=== PATIENT | female | born 1975 | race Caucasian/White ===

== ENCOUNTER 2018-02-06 11:39 | Emergency (ER) | payer OTHER ==
[~2018-02-06] VITALS: Ht 157.5 cm; Wt 68.0 kg
[2018-02-06] MEDS ORDERED: VENTOLIN HFA18 GM INH (11:49)
== END 2018-02-06 14:16 | disposition home or self-care (01) ==
LOC: ED 11:39
DX: S83.92XA Sprain of unspecified site of left knee, initial encounter (principal); J45.909 Unspecified asthma, uncomplicated; F17.200 Nicotine dependence, unspecified, uncomplicated; Z91.048 Other nonmedicinal substance allergy status; Z79.51 Long term (current) use of inhaled steroids; W19.XXXA Unspecified fall, initial encounter
CPT/HCPCS: 73560; 99283

== ENCOUNTER 2024-07-22 15:24 | Emergency (ER) | payer OTHER ==
[~2024-07-22 15:24] MED LIST: MACROBID 100 M100 MG PO; PREDNISONE20 MG PO; VENTOLIN HFA18 GM INH
--- OUTSIDE RECORDS SUMMARY | 2024-07-22 15:31 | XMS ---
PreManage Notification: MADISON GRANT Security Hay Sorter Events No recent Security Events currently on file CRITERIA MET - Group Notification CARE PROVIDERS There are no care providers on record at this time. Mika has no Care Guidelines for this patient. Augustine VISIT COUNT (12 MO.) 1 JOLLY [facility] TOTAL 1 NOTE: Visits indicate total known visits. ED/UCC VISIT TRACKING (12 MO.) 07/22/2024 15:24 [facility] TYPE: Emergency COMPLAINT: - ALTERED LOC INPATIENT VISIT TRACKING (12 MO.) No inpatient visits to display in this time frame [id number]
[2024-07-22] MEDS ORDERED: SODIUM CHLORIDE 0.9% 1,000 ML IV PRN (15:45)
[2024-07-22] MEDS ORDERED: LORazepam 2 MG/ML VIAL IM ONE (15:45)
[2024-07-22 16:00] VITALS: BP 128/88
[2024-07-22] MEDS ORDERED: NALOXONE 4 MG NASAL SPRAY #2 HOME.PACK NAS ONE (16:00)
== END 2024-07-22 16:02 | disposition left against medical advice (07) ==
LOC: ED 15:24
DX: T40.411A Poisoning by fentanyl or fentanyl analogs, accidental (unintentional), initial encounter (principal); R41.82 Altered mental status, unspecified; J45.909 Unspecified asthma, uncomplicated; F17.200 Nicotine dependence, unspecified, uncomplicated; Z53.29 Procedure and treatment not carried out because of patient's decision for other reasons; Z88.6 Allergy status to analgesic agent; Z88.8 Allergy status to other drugs, medicaments and biological substances; Z91.048 Other nonmedicinal substance allergy status; Z79.899 Other long term (current) drug therapy
CPT/HCPCS: 80053; 80307; 82140; 82553; 85025; 85610; 85730; 99284; G0480; J3490

== ENCOUNTER 2024-10-08 10:03 | Emergency (ER) | payer OTHER ==
[~2024-10-08] VITALS: Ht 157.5 cm; Wt 99.8 kg
--- OUTSIDE RECORDS SUMMARY | 2024-10-08 10:10 | XMS ---
PreManage Notification: MADISON GRANT Security Certified Nurses Aide Events No recent Security Events currently on file CRITERIA MET - Group Notification CARE PROVIDERS There are no care providers on record at this time. Mika has no Care Guidelines for this patient. [place] VISIT COUNT (12 MO.) 2 JOLLY Delacruz TOTAL 2 NOTE: Visits indicate total known visits. ED/UCC VISIT TRACKING (12 MO.) 10/08/2024 10:04 [facility] [place] TYPE: Emergency COMPLAINT: - COLD SYMPTOMS 07/22/2024 15:[address] [facility] [place] TYPE: Emergency COMPLAINT: - ALTERED LOC DIAGNOSES: - Allergy status to analgesic agent - Allergy status to other drugs, medicaments and biological substances - Altered mental status, unspecified - Bizarre personal appearance - Nicotine dependence, unspecified, uncomplicated - Other alf (current) drug therapy - Other nonmedicinal substance allergy status - Poisoning by fentanyl or fentanyl analogs, accidental (unintentional), initial encounter - Procedure and treatment not carried out because of patient's decision for other reasons - Unspecified asthma, uncomplicated INPATIENT VISIT TRACKING (12 MO.) No inpatient visits to display in this time frame [id number]
[2024-10-08 10:58] LABS: BASOPHILS 0.4 % (0-2); HEMATOCRIT 44.4 % (35.0-50.0); HEMOGLOBIN 15.2 g/dL (12.0-18.0); LYMPHOCYTES 10.3 % (24-44); MCH 32.4 (27-36); MCHC 34.2 g/dl (30-36); MCV 94.6 fl (81-99); MONOCYTES 8.2 % (0-12); NEUTROPHILS 79.1 % (39-80); PLATELET COUNT 200 K/uL (140-440); RDW 13.7 (10.5-15.0)
[2024-10-08] MEDS ORDERED: SODIUM CHLORIDE 0.9% 1,000 ML IV ONE (11:00)
[2024-10-08] MEDS ORDERED: IBUPROFEN 600 MG TAB PO ONE (11:00)
[2024-10-08] MEDS ORDERED: ALBUTEROL/IPRATROPIUM 3 ML NEB INH ONE (11:00)
[2024-10-08 11:11] LABS: ALBUMIN 3.2 g/dL (3.4-5.0); ALBUMIN/GLOBULIN RATIO 0.74 (1.1-2.4); ANION GAP 13.9 (7-21); BILIRUBIN, TOTAL 0.8 ng/dL (0.2-1.0); BUN/CREATININE RATIO 9.67 (6.0-28.6); CALCIUM 9.3 mg/dL (8.5-10.1); CREATININE, SERUM 0.62 mg/dL (0.55-1.02); POTASSIUM 3.9 mmol/L (3.5-5.1); PROTEIN, TOTAL 7.5 g/dL (6.4-8.2)
[2024-10-08 11:14] LABS: LACTIC ACID, BLOOD 1.1 mmol/L (0.4-2.0)
[2024-10-08] MEDS ORDERED: methylPREDNISolone SOD SUCC 125 MG/2 ML VIAL IV ONE (11:30)
[2024-10-08] MEDS ORDERED: DOXYCYCLINE HYCLATE 100 MG CAP PO ONE (11:30)
[2024-10-08] MEDS ORDERED: CEFTRIAXONE/SODIUM CHLORIDE 2 GM/100 ML PIGGYBACK IV ONE ×2 (11:30→13:00)
[2024-10-08 12:25] LABS: CORONAVIRUS COVID-19 AG NEGATIVE (NEGATIVE); INFLUENZA A AG NEGATIVE (NEGATIVE); INFLUENZA B AG NEGATIVE (NEGATIVE)
--- NOTE | 2024-10-08 12:49 | EKG ---
[facility] [address] [place] [address] Signed Sinus tachycardia Nonspecific T wave abnormality Abnormal ECG When compared with ECG of 26-JUL-2019 12:48, Nonspecific T wave abnormality no longer evident in Inferior leads Confirmed by Ruma Blunt MD ([id number]) on 10/08/2024 12:49:41 PM Electronically Signed By: RUMA BLUNT MD 10/08/24 1249 PATIENT NAME: MADISON GRANT Electrocardiogram DATE OF : 73 PHYSICIAN: RUMA BLUNT MD REPORT #: [id number] REPORT IS CONFIDENTIAL AND NOT TO BE RELEASED WITHOUT AUTHORIZATION
[2024-10-08] MEDS ORDERED: PREDNISONE50 MG PO (12:58)
[2024-10-08] MEDS ORDERED: DOXYCYCLINE HY100 MG PO (12:58)
[2024-10-08] MEDS ORDERED: VENTOLIN HFA18 GM INH (12:58)
[2024-10-08 13:12] VITALS: BP 112/72
== END 2024-10-08 13:40 | disposition home or self-care (01) ==
LOC: ED 10:03
PROVIDERS: Emergency Medicine
DX: J42 Unspecified chronic bronchitis (principal); J45.909 Unspecified asthma, uncomplicated; F17.200 Nicotine dependence, unspecified, uncomplicated; Z79.899 Other long term (current) drug therapy; Z59.00 Homelessness unspecified; Z88.8 Allergy status to other drugs, medicaments and biological substances; Z91.048 Other nonmedicinal substance allergy status
CPT/HCPCS: 36415; 71045; 80053; 80307; 83605; 85025; 93005; 93010; 94640; 96365; 96375; 99285-25; 99406; A9270; G0480; J0696; J2919; J7030